=== PATIENT | male | born 1985 | race Caucasian/White ===

== ENCOUNTER 2016-08-20 08:09 | Emergency (ER) | payer SELFPAY ==
[2016-08-20 08:23] VITALS: BP 143/77; PULSE 75; TEMP 98; BMI 39.1
--- NOTE | 2016-08-20 08:25 | PDOC ---
History of Present Illness - General Chief Complaint: Sore Throat Stated Complaint: THROAT PAIN Time Seen by Provider: 08/20/16 08:23 History Source: Patient Exam Limitations: No Limitations - History of Present Illness Initial Comments: CHIEF COMPLAINT: 31 y/o afebrile male with no significant PMH c/o sore throat since last night. HISTORY OF PRESENT ILLNESS: He also admits to dry cough on and off, mild runny nose. He states his throat was the most sore when he woke up this morning. He denies f/c, n/v/d, difficulty swallowing, CP, SOB, abd pain. He is here to make sure he doesn't need his tonsils out. Vital signs on arrival are within normal limits. REVIEW OF SYSTEMS: GENERAL/CONSTITUTIONAL: No fever/chills. No weakness. No weight change. HEAD, EYES, EARS, NOSE AND THROAT: No change in vision. No ear pain or discharge. + sore throat. +runny nose CARDIOVASCULAR: No chest pain or shortness of breath. RESPIRATORY: +intermittient dry cough. No wheezing, or hemoptysis. GASTROINTESTINAL: No abd pain, nausea, vomiting, diarrhea. GENITOURINARY: No dysuria, frequency, or change in urination. MUSCULOSKELETAL: No joint or muscle swelling or pain. No neck or back pain. SKIN: No rash or easy bruising. NEUROLOGIC: No headache, vertigo, loss of consciousness, or loss of sensation. PHYSICAL EXAM: GENERAL: The patient is awake, alert, and fully oriented, in no acute distress. He is obese, ambulatory, in NAD or obvious discomfort. HEAD: Normal with no signs of trauma. ENT: Pupils equal, round and reactive to light, extraocular movements intact, sclera anicteric, conjunctiva clear. 2+ tonsilar edema without erythema or exudate. Uvula midline. No soft or hard palate deformities. No trismus. Pt can handle his own secretions without difficulty. No petechia. NECK: No anterior cervical lymphadenopathy. NEUROLOGICAL: Normal speech, normal gait. CN II-XII grossly intact. SKIN: Warm, dry, normal turgor, no rashes or lesions noted. Past History - Past Medical History Allergies/Adverse Reactions: Allergies Allergy/AdvReac Type Severity Reaction Status Date / Time No Known Allergies Allergy Verified 08/20/16 08:19 Home Medications: Ambulatory Orders NK [No Known Home Medication] 05/01/16 Other medical history: PT DENIES. - Psycho/Social/Smoking Cessation Hx Anxiety: No Suicidal Ideation: No Smoking Status: No Smoking History: Current every day smoker Have you smoked in the past 12 months: Yes Number of Cigarettes Smoked Daily: 20 Information on smoking cessation initiated: No 'Breaking Loose' booklet given: 05/01/16 Hx Alcohol Use: No Drug/Substance Use Hx: No Substance Use Type: None Hx Substance Use Treatment: No *Physical Exam - Vital Signs Last Vital Signs Temp Pulse Resp BP Pulse Ox 98 F 75 18 143/77 97 08/20/16 08:19 08/20/16 08:19 08/20/16 08:19 08/20/16 08:19 08/20/16 08:19 Medical Decision Making - Medical Decision Making A/P: 31 y/o afebrile male with sore throat. Physical exam unremarkable. Suggested gargling with warm salt water, motrin, allergy medication and plenty of fluids. Instructed him to return to the ER with any worsening or concerning symptoms, such as fever or difficulty swallowing. The patient verbalizes understanding of all instructions, has no further questions and is awaiting discharge. *DC/Admit/Observation/Transfer Diagnosis at time of Disposition: Sore throat - Discharge Dispostion Disposition: HOME Condition at time of disposition: Good - Patient Instructions Printed Discharge Instructions: Sore Throat Additional Instructions: Discharge Instructions: -Gargle with warm salt water to help with sore throat -Take Motrin if needed for pain -Take over the counter allergy medication (zyrtec or claritin) to help with sore throat -Return to the ER immediately with any worsening or concerning symptoms such as fever, difficulty swallowing
== END 2016-08-20 09:03 | disposition home or self-care (01) ==
LOC: JERFT 08:09
DX: J02.9 Acute pharyngitis, unspecified (principal); F17.210 Nicotine dependence, cigarettes, uncomplicated
CPT/HCPCS: 99281-25

== ENCOUNTER 2016-11-13 08:11 | Emergency (ER) | payer SELFPAY ==
[2016-11-13 08:22] VITALS: BP 134/83; PULSE 83; TEMP 97.8; BMI 35.5
--- NOTE | 2016-11-13 09:00 | PDOC ---
History of Present Illness - General Chief Complaint: Sore Throat Stated Complaint: THROAT PAIN Time Seen by Provider: 11/13/16 08:55 History Source: Patient Exam Limitations: No Limitations - History of Present Illness Initial Comments: 11/13/16 09:03 Patient is a 21-year-old male, no significant medical history currently on no medication presents emergency department with sore throat that started yesterday , tactile fever, dysphagia. Past Medical History: Denies. Allergies: No known allergies Medications: None Family History: Non-contributory Social History: Denies smoking, alcohol use, or IVDU Review of Systems GENERAL/CONSTITUTIONAL: No fever or chills. No weakness. No weight change. HEAD, EYES, EARS, NOSE AND THROAT: No change in vision. No ear pain or discharge. Sore throat and dysphagia CARDIOVASCULAR: No chest pain or shortness of breath. RESPIRATORY: No cough, wheezing, or hemoptysis. GASTROINTESTINAL: No nausea, vomiting, diarrhea or constipation. No rectal bleeding. GENITOURINARY: No dysuria, frequency, or change in urination. MUSCULOSKELETAL: No joint or muscle swelling or pain. No neck or back pain. SKIN AND BREASTS: No rash or easy bruising. NEUROLOGIC: No headache, vertigo, loss of consciousness, or loss of sensation. PSYCHIATRIC: No depression or anxiety. ENDOCRINE: No increased thirst. No abnormal weight change. HEMATOLOGIC/LYMPHATIC: No anemia, easy bleeding, or history of blood clots. ALLERGIC/IMMUNOLOGIC: No hives or skin allergy. No latex allergy. Physical Exam: GENERAL: The patient is awake, alert, and fully oriented, in no acute distress. EYES: Pupils equal, round and reactive to light, extraocular movements intact, sclera anicteric, conjunctiva clear. ENT: Ears normal, nares patent, oropharynx erythematous, exudates on left . Moist mucous membranes. No uvula deviation. Left precervical lymphadenopathy NECK: Normal range of motion, supple without lymphadenopathy, JVD, or masses. LUNGS: Breath sounds equal, clear to auscultation bilaterally. No wheezes, and no crackles. HEART: Regular rate and rhythm, normal S1 and S2 without murmur, rub or gallop. ABDOMEN: Soft, nontender, normoactive bowel sounds. No guarding, no rebound. No masses. No bruising or abrasions MUSCULOSKELETAL: Normal range of motion, no edema. No clubbing or cyanosis. No cords, erythema, or tenderness. No CVA Tenderness with fist. NEUROLOGICAL: Cranial nerves II through XII grossly intact. Normal speech, normal gait. SKIN: Warm, Dry, normal turgor, no rashes or lesions noted. 11/13/16 09:07 Past History - Past Medical History Allergies/Adverse Reactions: Allergies Allergy/AdvReac Type Severity Reaction Status Date / Time No Known Allergies Allergy Verified 11/13/16 08:20 Home Medications: Ambulatory Orders Azithromycin [Zithromax 250mg Tablets -] 250 mg PO UTDICT #6 tab 11/13/16 - Psycho/Social/Smoking Cessation Hx Anxiety: No Suicidal Ideation: No Smoking Status: No Smoking History: Current every day smoker Have you smoked in the past 12 months: Yes Number of Cigarettes Smoked Daily: 20 Information on smoking cessation initiated: No 'Breaking Loose' booklet given: 05/01/16 Hx Alcohol Use: No Drug/Substance Use Hx: No Substance Use Type: None Hx Substance Use Treatment: No *Physical Exam - Vital Signs Last Vital Signs Temp Pulse Resp BP Pulse Ox 97.8 F 83 18 134/83 99 11/13/16 08:18 11/13/16 08:18 11/13/16 08:18 11/13/16 08:18 11/13/16 08:18 Medical Decision Making - Medical Decision Making 11/13/16 09:06 A/P: Patient with dysphagia. Sore throat, patient has significant erythema to posterior pharynx with exudates on left, left precervical lymphadenopathy. We' ll DC patient home on azithromycin, warm salt water gargles, change toothbrush in 3 days I discussed the physical exam findings, ancillary test results and final diagnoses with the patient. I answered all of the patient's questions. The patient was satisfied with the care received and felt comfortable with the discharge plan and treatment plan. The patient will call to arrange follow-up and will return to the Emergency Department with any new, persistent or worsening symptoms. *DC/Admit/Observation/Transfer Diagnosis at time of Disposition: Pharyngitis Qualifiers: Pharyngitis/tonsillitis etiology: unspecified etiology Qualified Code(s): J02.9 - Acute pharyngitis, unspecified - Discharge Dispostion Disposition: HOME Condition at time of disposition: Good Admit: No - Prescriptions Prescriptions: Azithromycin [Zithromax 250mg Tablets -] 250 mg PO UTDICT #6 tab - Patient Instructions Printed Discharge Instructions: DI for Pharyngitis/Tonsillopharyngitis -- Adult Additional Instructions: 1. Increase fluid. 2. Pedialyte or Gatorade. 3. Please change toothbrush within 3 days of starting antibiotics. 4. Warm saltwater gargles. 5. Please follow up with PMD in 3 days if symptoms not resolving. 6. Please return to the ER unable to drink or eat, increased fever or other concerns - Post Discharge Activity Work/School Note: Back to Work
== END 2016-11-13 09:08 | disposition home or self-care (01) ==
LOC: JER 08:11 → JERFT 08:11
DX: J02.9 Acute pharyngitis, unspecified (principal); F17.210 Nicotine dependence, cigarettes, uncomplicated
CPT/HCPCS: 99281-25

== ENCOUNTER 2018-07-10 15:17 | Emergency (ER) | payer SELFPAY ==
--- NOTE | 2018-07-10 15:35 | PDOC ---
Rapid Medical Evaluation Time Seen by Provider: 07/10/18 15:33 Medical Evaluation: Allergies Allergy/AdvReac Type Severity Reaction Status Date / Time No Known Allergies Allergy Verified 11/13/16 08:20 07/10/18 15:34 Pt c/o: right heel pain x 3 months, on feet all day, worse with ambulation, no med f/u , no meds taken Pt on brief exam: FROM, no swelling or redness Pt ordered for: heel xray Pt to proceed to the ED Discharge Disposition - Diagnosis Heel pain - Referrals - Patient Instructions - Post Discharge Activity
[2018-07-10 15:44] VITALS: BP 121/80; PULSE 107; TEMP 98.5; BMI 45.6
--- NOTE | 2018-07-10 16:55 | PDOC ---
History of Present Illness - General Chief Complaint: Pain Stated Complaint: RT LEG PAIN Time Seen by Provider: 07/10/18 15:33 History Source: Patient Exam Limitations: No Limitations - History of Present Illness Initial Comments: 07/10/18 16:47 Patient here with 3 months of pain to his right plantar foot. States is progressively worsening, is worse in the morning and hurts when he flexes foot to stand on it. Has used ibuprofen with minimal resolved. 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 07/10/18 16:48 Severity: reports: mild Pain Location: reports: lower extremity (right foot plantar aspect) Method of Injury: Yes: unknown Loss of Consciousness: no loss of consciousness Associated Symptoms (Fall): denies symptoms Past History - Past Medical History Allergies/Adverse Reactions: Allergies Allergy/AdvReac Type Severity Reaction Status Date / Time No Known Allergies Allergy Verified 07/10/18 15:44 Home Medications: Ambulatory Orders Azithromycin [Zithromax 250mg Tablets -] 250 mg PO UTDICT #6 tab 11/13/16 COPD: No - Suicide/Smoking/Psychosocial Hx Smoking Status: No Smoking History: Never smoked Have you smoked in the past 12 months: Yes Number of Cigarettes Smoked Daily: 20 Information on smoking cessation initiated: No 'Breaking Loose' booklet given: 05/01/16 Hx Alcohol Use: No Drug/Substance Use Hx: No Substance Use Type: None Hx Substance Use Treatment: No *Physical Exam - Vital Signs Last Vital Signs Temp Pulse Resp BP Pulse Ox 98.5 F 107 H 19 121/80 100 07/10/18 15:43 07/10/18 15:43 07/10/18 15:43 07/10/18 15:43 07/10/18 15:43 - Physical Exam General Appearance: Yes: Nourished, Appropriately Dressed, Apparent Distress, Mild Distress HEENT: positive: EOMI, RK, Normal ENT Inspection, TMs Normal Neck: positive: Supple. negative: Tender Respiratory/Chest: positive: Lungs Clear Gastrointestinal/Abdominal: positive: Soft Extremity: positive: Normal Capillary Refill, Normal Inspection, Tender. negative: Normal Range of Motion (painful range of motion on flexion at plantar fascia. 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, Fully Oriented, Alert, Normal Mood/ Affect, Normal Response, Motor Strength 5/5 Moderate Sedation - Procedure Monitoring Vital Signs: Procedure Monitoring Vital Signs Temperature 98.5 F 07/10/18 15:43 Pulse Rate 107 H 07/10/18 15:43 Respiratory Rate 07/10/18 15:43 Blood Pressure 121/80 07/10/18 15:43 O2 Sat by Pulse Oximetry (%) 100 07/10/18 15:43 Progress Note - Progress Note Progress Note: Plantar fasciitis, recommended continue NSAIDs and given for swelling and pain, about therapeutic treatments RICE, also information about acupuncture *DC/Admit/Observation/Transfer Diagnosis at time of Disposition: Plantar fasciitis of right foot - Discharge Dispostion Disposition: HOME Condition at time of disposition: Stable Decision to Admit order: No - Referrals Referrals: Bianka Kerr MD [Staff Physician] - - Patient Instructions Printed Discharge Instructions: DI for Plantar Fasciitis Additional Instructions: Rest, ice to area on and off for 15 minutes 4-6 times a day Avoid heavy lifting or exercise until pain and swelling is resolved or until further directed Keep area highly elevated to reduce swelling Wear supportive shoes/tennis shoes-sneakers Freeze water in a Coca-Cola bottle, and gently roll along bottom of foot to assist with icing the area Use splints/Paul wrap as directed Followup with orthopedist in one to 2 days if not improving, if significantly improved may wait one week for followup with orthopedist May consider alternative modalities including physical therapy, acupuncture or pressure, naturopathic rubs like Arnica creams May use ibuprofen 2-200 mg tablets every 6 hours as needed for pain Aníbal Pitts- [employer]- [phone] - Post Discharge Activity Forms/Work/School Notes: Back to Work
== END 2018-07-10 16:54 | disposition home or self-care (01) ==
LOC: JERFT 15:17
DX: M72.2 Plantar fascial fibromatosis (principal)
CPT/HCPCS: 73630-TC-RT-FY; 99281-25

== ENCOUNTER 2018-08-17 10:47 | Emergency (ER) | payer SELFPAY ==
[2018-08-17 10:55] VITALS: BP 149/95; PULSE 118; TEMP 98; BMI 38.5
[2018-08-17] MEDS ORDERED: IBUPROFEN 400 MG TABLET (FP) PO ONE ×2 (11:11→11:18)
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
== END 2018-08-17 12:01 | disposition home or self-care (01) ==
LOC: JERFT 10:47
DX: S69.81XA Other specified injuries of right wrist, hand and finger(s), initial encounter (principal); Y04.0XXA Assault by unarmed brawl or fight, initial encounter; Y93.89 Activity, other specified; Y92.89 Other specified places as the place of occurrence of the external cause; Y99.8 Other external cause status
CPT/HCPCS: 73130-TC-RT-FY; 99281-25

== ENCOUNTER 2018-09-26 02:47 | Emergency (ER) | payer OTHER | END 2018-09-26 05:10 | disposition home or self-care (01) | LOC: JER 02:47 ==